=== PATIENT | male | born 1995 | race Caucasian/White ===

== ENCOUNTER 2020-07-21 15:14 | Emergency (ER) | payer OTHER, BC ==
[2020-07-21 16:39] VITALS: BP 151/96
== END 2020-07-21 16:39 | disposition home or self-care (01) ==
LOC: ED 15:14
DX: S13.4XXA Sprain of ligaments of cervical spine, initial encounter (principal); R10.9 Unspecified abdominal pain; Z23 Encounter for immunization; V48.5XXA Car driver injured in noncollision transport accident in traffic accident, initial encounter